=== PATIENT | female | born 1945 | race Caucasian/White ===

== ENCOUNTER → 2016-09-03 | Outpatient (CLI) | payer MEDICARE, MEDICAID | LOC: M HL 09:40 | PROVIDERS: ATTEND Physician Assistant Medical | DX: I10 Essential (primary) hypertension (principal) ==

== ENCOUNTER → 2016-09-06 | Outpatient (CLI) | payer MEDICARE, MEDICAID | LOC: M LAB 09:45 | PROVIDERS: ATTEND Physician Assistant Medical | DX: I10 Essential (primary) hypertension (principal); R73.01 Impaired fasting glucose ==

== ENCOUNTER 2017-10-20 19:13 | Emergency (ER) | payer OTHER, MEDICARE, MEDICAID ==
[2017-10-20] MEDS: KETOROLAC 60 MG/2 ML VIAL (J1885) IM (21:42)
== END 2017-10-20 22:20 | disposition home or self-care (01) ==
LOC: M ED 19:13
DX: S16.1XXA Strain of muscle, fascia and tendon at neck level, initial encounter (principal); V49.49XA Driver injured in collision with other motor vehicles in traffic accident, initial encounter; Y92.410 Unspecified street and highway as the place of occurrence of the external cause; I10 Essential (primary) hypertension; Z79.899 Other long term (current) drug therapy; Z88.0 Allergy status to penicillin; Z88.5 Allergy status to narcotic agent
CPT/HCPCS: J1885

== ENCOUNTER → 2017-11-11 | Outpatient (CLI) | payer MEDICARE, MEDICAID | LOC: M RAD 14:48 | DX: Z12.31 Encounter for screening mammogram for malignant neoplasm of breast (principal); Z78.0 Asymptomatic menopausal state; Z92.0 Personal history of contraception | CPT/HCPCS: 77067 ==

== ENCOUNTER 2017-11-19 07:53 | Outpatient (RCR) | payer OTHER, MEDICAID, MEDICARE | END 2017-12-14 | LOC: M PT 07:53 | DX: Z51.89 Encounter for other specified aftercare (principal); S13.4XXD Sprain of ligaments of cervical spine, subsequent encounter | CPT/HCPCS: 97010 ==

== ENCOUNTER → 2017-12-29 | Outpatient (REF) | payer OTHER ==
[2017-12-29 11:43] LABS: BASO # 0.1 10^3/uL (0.0-0.2); BASO % 0.8 % (0.0-1.0); EOS # 0.2 10^3/uL (0.0-0.50); EOS % 2.4 % (0.0-3.0); HEMATOCRIT 39.5 % (36.0-47.0); HEMOGLOBIN 13.1 g/dl (12.0-15.5); IMMATURE GRANULOCYTE % 0.2 % (0-3.0); LYMPH # 1.5 10^3/uL (1.5-4.5); LYMPH % 22.3 % (24.0-44.0); MEAN CORPUSCULAR HEMOGLOBIN 29.8 pg (27.0-33.0); MEAN CORPUSCULAR HGB CONC 33.2 g/dl (32.0-36.5); MONO # 0.5 10^3/uL (0.0-0.8); MONO % 8.1 % (0.0-5.0); NEUTROPHILS # 4.4 10^3/uL (1.8-7.7); NEUTROPHILS % 66.2 % (36.0-66.0); PLATELET COUNT, AUTOMATED 213 10^3/uL (150-450); RED BLOOD COUNT 4.39 10^6/uL (4.00-5.40); WHITE BLOOD COUNT 6.6 10^3/uL (4.0-10.0)
[2017-12-29 12:26] LABS: ALBUMIN 3.9 GM/DL (3.2-5.2); ALBUMIN/GLOBULIN RATIO 1.15 (1.00-1.93); ALKALINE PHOSPHATASE 66 U/L (45-117); ALT/SGPT 28 U/L (12-78); ANION GAP 5 MEQ/L (8-16); AST/SGOT 23 U/L (7-37); BILIRUBIN,TOTAL 0.5 MG/DL (0.2-1.0); BLOOD UREA NITROGEN 22 MG/DL (7-18); CALCIUM LEVEL 8.8 MG/DL (8.8-10.2); CARBON DIOXIDE LEVEL 34 MEQ/L (21-32); CHLORIDE LEVEL 104 MEQ/L (98-107); CHOLESTEROL LEVEL 169 MG/DL (<200); CHOLESTEROL RISK RATIO 2.682 (<5); CREATININE FOR GFR 0.81 MG/DL (0.55-1.30); GLOMERULAR FILTRATION RATE > 60.0 (>39); GLUCOSE, FASTING 99 MG/DL (70-100); HDL CHOLESTEROL 63 MG/DL (>40); LDL CHOLESTEROL 88.8 MG/DL (<100); NON-HDL-C 106 MG/DL; POTASSIUM SERUM 3.6 MEQ/L (3.5-5.1); SODIUM LEVEL 143 MEQ/L (136-145); TOTAL PROTEIN 7.3 GM/DL (6.4-8.2); TRIGLYCERIDES LEVEL 86 MG/DL (<150)
[2017-12-29 12:31] LABS: TOTAL 25(OH) VITAMIN D 37.5 NG/ML (30.0-100.0)
== END ==
LOC: M LABDRAW1 10:22
DX: I50.32 Chronic diastolic (congestive) heart failure (principal); E55.9 Vitamin D deficiency, unspecified; I11.0 Hypertensive heart disease with heart failure
CPT/HCPCS: 84443

== ENCOUNTER 2018-01-20 12:30 | Outpatient (RCR) | payer OTHER | END 2018-02-13 | LOC: M PT 12:30 | DX: Z51.89 Encounter for other specified aftercare (principal); M54.2 Cervicalgia; S13.4XXD Sprain of ligaments of cervical spine, subsequent encounter | CPT/HCPCS: 97010 ==

== ENCOUNTER 2018-04-07 05:49 | Day surgery (SDC) | payer MEDICARE, MEDICAID ==
[2018-04-07] MEDS ORDERED: TOBRADEX OPHTH OINT 3.5 GM As Ordered (06:35)
[2018-04-07] MEDS: LIDOCAINE 3.5 % 1ML OPHTH TOPICAL GEL OU (06:40)
[2018-04-07] MEDS ORDERED: fentaNYL 100 MCG/2 ML INJECTION (J3010) As Ordered (06:57)
[2018-04-07] MEDS ORDERED: MIDAZOLAM INJ 2 MG/2 ML VIAL (J2250) As Ordered (06:57)
[2018-04-07] MEDS: POVIDONE-IODINE 5% OPHTH PREP SOL 30ML As Ordered (07:30)
[2018-04-07] MEDS: LIDOCAINE 2% W/EPIN INJ 20ML **PRES FREE As Ordered (07:39)
== END 2018-04-07 08:20 | disposition home or self-care (01) ==
LOC: M SDC 05:49
DX: H02.015 Cicatricial entropion of left lower eyelid (principal); I10 Essential (primary) hypertension; G47.30 Sleep apnea, unspecified; F41.9 Anxiety disorder, unspecified; Z79.899 Other long term (current) drug therapy; Z88.0 Allergy status to penicillin
CPT/HCPCS: 67924

== ENCOUNTER → 2018-06-29 | Outpatient (CLI) | payer MEDICARE, MEDICAID ==
[2018-06-29 13:40] LABS: BASO # 0.1 10^3/uL (0.0-0.2); BASO % 0.7 % (0.0-1.0); EOS # 0.2 10^3/uL (0.0-0.50); EOS % 2.1 % (0.0-3.0); HEMATOCRIT 42.5 % (36.0-47.0); HEMOGLOBIN 13.9 g/dl (12.0-15.5); IMMATURE GRANULOCYTE % 0.3 % (0-3.0); LYMPH # 1.9 10^3/uL (1.5-4.5); LYMPH % 26.3 % (24.0-44.0); MEAN CORPUSCULAR HEMOGLOBIN 29.8 pg (27.0-33.0); MEAN CORPUSCULAR HGB CONC 32.7 g/dl (32.0-36.5); MONO # 0.6 10^3/uL (0.0-0.8); MONO % 8.8 % (0.0-5.0); NEUTROPHILS # 4.5 10^3/uL (1.8-7.7); NEUTROPHILS % 61.8 % (36.0-66.0); PLATELET COUNT, AUTOMATED 222 10^3/uL (150-450); RED BLOOD COUNT 4.67 10^6/uL (4.00-5.40); RED CELL DISTRIBUTION WIDTH 12.9 % (11.5-14.5); WHITE BLOOD COUNT 7.3 10^3/uL (4.0-10.0)
[2018-06-29 14:08] LABS: ALBUMIN 4.1 GM/DL (3.2-5.2); ALBUMIN/GLOBULIN RATIO 1.37 (1.00-1.93); ALKALINE PHOSPHATASE 74 U/L (45-117); ALT/SGPT 28 U/L (12-78); ANION GAP 7 MEQ/L (8-16); AST/SGOT 25 U/L (7-37); BILIRUBIN,TOTAL 0.5 MG/DL (0.2-1.0); BLOOD UREA NITROGEN 20 MG/DL (7-18); CALCIUM LEVEL 9.4 MG/DL (8.8-10.2); CARBON DIOXIDE LEVEL 35 MEQ/L (21-32); CHLORIDE LEVEL 99 MEQ/L (98-107); CHOLESTEROL LEVEL 175 MG/DL (<200); CHOLESTEROL RISK RATIO 2.692 (<5); CREATININE FOR GFR 0.83 MG/DL (0.55-1.30); GLOMERULAR FILTRATION RATE > 60.0 (>39); GLUCOSE, FASTING 95 MG/DL (70-100); HDL CHOLESTEROL 65 MG/DL (>40); LDL CHOLESTEROL 95 MG/DL (<100); NON-HDL-C 110 MG/DL; POTASSIUM SERUM 3.5 MEQ/L (3.5-5.1); SODIUM LEVEL 141 MEQ/L (136-145); TOTAL 25(OH) VITAMIN D 47.9 NG/ML (30.0-100.0); TOTAL PROTEIN 7.1 GM/DL (6.4-8.2); TRIGLYCERIDES LEVEL 76 MG/DL (<150)
== END ==
LOC: M LAB 12:44
DX: Z00.00 Encounter for general adult medical examination without abnormal findings (principal); Z79.899 Other long term (current) drug therapy
CPT/HCPCS: 84443

== ENCOUNTER → 2018-11-25 | Outpatient (CLI) | payer MEDICARE, MEDICAID ==
[~2018-11-25] MED LIST: ALEN35TA37; CILO0.3S OU; DOXA1TAB41 PO; HYDR-3363 PO; HYDR12.55 PO; IBUP-1022 PO; LISI40TA PO; MULT1TAB10 PO; PROAAER10 INH; ROBA500T PO; SERT-155 PO; TRAM50TA2 PO; TRAZ-160 PO; VENTAER INH; VITA100067 PO
--- NOTE | 2018-11-25 17:36 | REPMRS ---
Patient History The patient states she has not had a clinical breast exam in over a year. No known family history of cancer. Took hormonal contraceptives for 2 months. Digital Mammo Screening Bilat: November 25, 2018 - Exam #: [id number] Bilateral CC and MLO view(s) were taken. Technologist: Anjana Pizano, Technologist Prior study comparison: November 11, 2017, bilateral digital mammo screening bilat performed at [facility]. June 26, 2016, bilateral digital mammo screening bilat performed at [facility]. April 03, 2015, bilateral digital mammo screening bilat performed at [facility]. FINDINGS: There are scattered fibroglandular densities. There has been no change in the appearance of the mammogram from the prior studies. There is a mild amount of scattered fibroglandular density which is fairly symmetric. There is no interval development of dominant mass, architectural distortion, or clustered microcalcification suggestive of malignancy. 3-D tomosynthesis shows no additional findings. Assessment: BI-RADS/ACR category 1 mammogram. Negative Mammogram. Recommendation Routine screening mammogram of both breasts in 1 year (for women over age 40). This patient's Lifetime Breast Cancer RIsk is estimated at 6.4 %. This mammogram was interpreted with the aid of an FDA-approved computer-aided dectection system. Electronically Signed By: Raheem Oneill MD 11/25/18 [id number]
== END ==
LOC: M RAD 13:00
PROVIDERS: ATTEND Physician Assistant Medical
DX: Z12.31 Encounter for screening mammogram for malignant neoplasm of breast (principal)

== ENCOUNTER → 2019-02-07 | Outpatient (REF) | payer MEDICARE, MEDICAID ==
[~2019-02-07] MED LIST changes: -TRAZ-160 PO; +TRAZ-252 PO
[2019-02-07 19:32] LABS: BASO # 0.1 10^3/uL (0.0-0.2); BASO % 0.7 % (0.0-1.0); EOS # 0.1 10^3/uL (0.0-0.50); EOS % 1.7 % (0.0-3.0); HEMATOCRIT 42.3 % (36.0-47.0); HEMOGLOBIN 13.9 g/dl (12.0-15.5); LYMPH # 1.7 10^3/uL (1.5-4.5); LYMPH % 23.4 % (24.0-44.0); MEAN CORPUSCULAR HEMOGLOBIN 29.6 pg (27.0-33.0); MEAN CORPUSCULAR HGB CONC 32.9 g/dl (32.0-36.5); MEAN CORPUSCULAR VOLUME 90.2 fl (80.0-96.0); MONO # 0.7 10^3/uL (0.0-0.8); MONO % 9.1 % (0.0-5.0); NEUTROPHILS # 4.7 10^3/uL (1.8-7.7); NEUTROPHILS % 64.8 % (36.0-66.0); PLATELET COUNT, AUTOMATED 219 10^3/uL (150-450); RED BLOOD COUNT 4.69 10^6/uL (4.00-5.40); WHITE BLOOD COUNT 7.3 10^3/uL (4.0-10.0)
[2019-02-07 19:52] LABS: ALBUMIN 3.9 GM/DL (3.2-5.2); BILIRUBIN,TOTAL 0.6 MG/DL (0.2-1.0); CHOLESTEROL RISK RATIO 2.903 (<5); CREATININE FOR GFR 1.02 MG/DL (0.55-1.30); GLOMERULAR FILTRATION RATE 56.6 (>39); POTASSIUM SERUM 3.5 MEQ/L (3.5-5.1); THYROID STIMULATING HORMONE 1.57 uIU/ML (0.358-3.740); TOTAL 25(OH) VITAMIN D 41.2 NG/ML (30.0-100.0); TOTAL PROTEIN 7.3 GM/DL (6.4-8.2)
== END ==
LOC: M SFHCADAM 11:28
PROVIDERS: ATTEND Physician Assistant Medical
DX: Z00.00 Encounter for general adult medical examination without abnormal findings (principal); I11.0 Hypertensive heart disease with heart failure; I50.32 Chronic diastolic (congestive) heart failure; E55.9 Vitamin D deficiency, unspecified; M81.0 Age-related osteoporosis without current pathological fracture; Z23 Encounter for immunization
CPT/HCPCS: 80053; 80061; 82306; 84443; 85025; 90732; 93005; G0009; G0463

== ENCOUNTER → 2019-02-10 | Outpatient (CLI) | payer MEDICARE, MEDICAID ==
--- NOTE | 2019-02-12 15:02 | ECHO ---
DATE OF PROCEDURE: 02/10/2019 AGE: 73 GENDER: Female HEIGHT: 62 inches WEIGHT: 155 pounds BODY SURFACE AREA: 1.72 m2 PATIENT LOCATION: Outpatient. REFERRING PHYSICIAN: KARRIE Hernandez INDICATION: Heart failure (diastolic/chronic). 2-D MEASUREMENTS: RV: 3.2 cm LV: 3.8 cm Septum: 1.2 cm Posterior wall: 1.2 cm Aortic root: 2.8 cm LA: 3.9 cm LVEF: 75% DOPPLER MEASUREMENTS: AV: 2.07 m/s LVOT: 1.53 m/s LVOT diameter: 1.9 cm Mean AV systolic gradient: 8 mmHg PV-E: 96, A: 121, EA ratio: 0.8 Early mitral deceleration time: 264 ms E prime: 5.3, A prime: 9.7, E/E prime ratio: 18 PCWP: 21 mmHg PV: 1.0 m/s Pulmonary artery acceleration time: 106 ms RVSP: 35 mmHg IVC: 1.6 cm COMMENTS Normal sinus rhythm without intraventricular conduction disturbance. M-mode and two-dimensional echocardiography was performed with pulsed, continuous wave, color flow and tissue Doppler studies. Borderline concentric left ventricle hypertrophy with hyperkinetic wall motion. Borderline left atrial enlargement with Doppler evidence of an impairment of LV diastolic function and elevated mean left atrial pressure. Normal right heart chamber sizes and motion with Doppler evidence of mild pulmonary hypertension. Normal IVC size and collapse against an elevated central venous pressure at this time. Mild aortic valvular sclerosis without functional abnormality. Mild mitral annular thickening without inflow tract obstruction and only mild insufficiency. Normal appearing tricuspid valve with mild insufficiency. No apparent intracardiac mass or pericardial effusion.
== END ==
LOC: M CARPUL 09:49
PROVIDERS: ATTEND Physician Assistant Medical
DX: I50.32 Chronic diastolic (congestive) heart failure (principal)

== ENCOUNTER 2019-02-14 20:21 | Emergency (ER) | payer MEDICARE, MEDICAID ==
[~2019-02-14] VITALS: Ht 160 cm; Wt 68.0 kg
[2019-02-14] MEDS ORDERED: LIDOCAINE 2% MDV 20 ML VIAL SC ONE (23:15)
[2019-02-14 23:36] VITALS: BP 165/76
--- NOTE | 2019-02-15 07:42 | REP ---
Clinical: Trauma. Technique: AP, lateral, bilateral oblique views of the left hand. Findings: Comminuted mildly angulated fracture involving the fifth metacarpal bone is appreciated with overlying soft tissue swelling. Impression: Comminuted fracture of the fifth metacarpal bone. Electronically Signed by Omer Stanton MD 02/15/2019 07:33 A
--- NOTE | 2019-02-15 07:43 | REP ---
Clinical: Status post splint. Technique: AP and lateral views of the left hand. Findings: The patient is status post stabilization with underlying comminuted fifth metacarpal bone fracture again noted. Electronically Signed by Omer Stanton MD 02/15/2019 07:34 A
== END 2019-02-14 23:48 | disposition home or self-care (01) ==
LOC: M ED 20:21
DX: S62.327A Displaced fracture of shaft of fifth metacarpal bone, left hand, initial encounter for closed fracture (principal); W01.0XXA Fall on same level from slipping, tripping and stumbling without subsequent striking against object, initial encounter; Y92.219 Unspecified school as the place of occurrence of the external cause; Y93.01 Activity, walking, marching and hiking; I10 Essential (primary) hypertension; F41.9 Anxiety disorder, unspecified; Z79.51 Long term (current) use of inhaled steroids; Z79.891 Long term (current) use of opiate analgesic; Z79.899 Other long term (current) drug therapy; Z88.0 Allergy status to penicillin; Z88.5 Allergy status to narcotic agent

== ENCOUNTER 2019-04-14 14:07 | Outpatient (RCR) | payer MEDICARE, MEDICAID | END 2019-04-16 | LOC: M PT 14:07 | PROVIDERS: ATTEND Physician Assistant | DX: S62.327D Displaced fracture of shaft of fifth metacarpal bone, left hand, subsequent encounter for fracture with routine healing (principal); M54.2 Cervicalgia ==

== ENCOUNTER → 2019-04-26 | Outpatient (CLI) | payer MEDICARE, MEDICAID ==
--- NOTE | 2019-04-27 08:58 | REP ---
MRI of the cervical spine without contrast Indication: Clune no joints and ligaments of the neck. Comparison: CT cervical spine of 10/20/2017. Technique: MRI of the cervical spine was performed utilizing sagittal T1 FLAIR, STIR, and T2 weighted imaging as well as axial T1 and T2-weighted imaging. No intravenous contrast was administered. Findings: There is straightening of cervical lordosis. There is an 2 mm anterolisthesis of C2 on C3, similar to prior. Vertebral body heights are maintained. There are multilevel degenerative changes at C3-C7 with loss of disc height and disc osteophyte complex formation and endplate marrow signal changes. There is no gross signal abnormality within the spinal cord. The paraspinal soft tissues are within normal limits. Level specific observations: C2-C3: Anterolisthesis. Bilateral uncovertebral joint hypertrophy. C3-C4: Disc osteophyte complex. Mild spinal canal stenosis. C4-C5: Disc osteophyte complex, eccentric to the right. Mild right-sided narrowing of the spinal canal. Bilateral neural foraminal narrowing, greater on the right. C5-C6: Disc osteophyte complex. Mild spinal canal stenosis. Bilateral neural foraminal narrowing. C6-C7: Disc osteophyte complex, eccentric to the right. Mild spinal canal stenosis. Moderate neural foraminal narrowing, worse on the right. C7-T1: Unremarkable. Impression: Straightening of cervical lordosis and grade 1 anterolisthesis of C2 on C3, similar to prior. Multilevel cervical spondylosis with mild spinal canal stenosis at C3-C7. Bilateral neural foraminal narrowing at C4-C7, most notably at C6-C7. Electronically Signed by Ester Triana MD 04/27/2019 08:50 A
== END ==
LOC: M RAD 17:08
PROVIDERS: ATTEND Physician Assistant
DX: S13.8XXD Sprain of joints and ligaments of other parts of neck, subsequent encounter (principal)

== ENCOUNTER 2019-05-12 13:40 | Outpatient (RCR) | payer MEDICARE, MEDICAID | END 2019-05-16 | LOC: M PT 13:40 | PROVIDERS: ATTEND Physician Assistant | DX: S62.327D Displaced fracture of shaft of fifth metacarpal bone, left hand, subsequent encounter for fracture with routine healing (principal) ==

== ENCOUNTER 2019-06-01 14:50 | Emergency (ER) | payer MEDICARE, MEDICAID ==
[~2019-06-01] VITALS: Ht 157.5 cm; Wt 73.4 kg
[~2019-06-01 14:50] MED LIST changes: -ALEN35TA37; +ALEN35TA6; -SERT-155 PO; +SERT50TA29 PO
[2019-06-01] MEDS ORDERED: OLOP0.2S (15:38)
--- NOTE | 2019-06-01 16:25 | REP ---
Duplex extremity venous ultrasound: Left lower extremity. History: Rule out DVT. Findings: The deep veins are anechoic and fully compressible from the groin to the popliteal fossa in the left lower extremity. Color flow imaging is homogeneous. Spectral Doppler interrogation demonstrates intact respiratory variation in flow and normal manual augmentation of flow. There is no evidence of deep vein thrombosis. Impression: Negative left lower extremity duplex venous ultrasound. No evidence of deep vein thrombosis. Electronically Signed by Sanjay Oneill MD 06/01/2019 04:17 P
--- NOTE | 2019-06-01 16:34 | REP ---
Left knee series: Five views. History: Knee pain. Findings: Five views of the left knee demonstrate normal bones, joints, and soft tissues. Impression: Negative radiographs of the left knee. Electronically Signed by Sanjay Oneill MD 06/01/2019 04:25 P
--- NOTE | 2019-06-01 16:35 | REP ---
Left calf: Four views. History: Tenderness palpation proximal tib-fib. Findings: Four views of the left calf demonstrate normal bones, joints and soft tissues. No fracture or subluxation is seen. There is plantar and Achilles calcaneal spurring. Impression: Heel spurring. Otherwise negative left calf radiographs. Electronically Signed by Sanjay Oneill MD 06/01/2019 04:26 P
[2019-06-01 17:04] VITALS: BP 145/70
--- NOTE | 2019-06-01 17:29 | REP ---
Five views lumbar spine: 06/01/2019. Indication: Low back pain. Comparison: None. Findings: There is no evidence of acute fracture, subluxation or dislocation. Disc space narrowing, endplate degenerative sequelae and disc and spur complexes are present throughout. Impression: No acute osseous injury of the lumbar spine. Significant multilevel degenerative sequelae. Electronically Signed by Jacob Dhillon DO 06/01/2019 05:20 P
--- NOTE | 2019-06-01 17:34 | REP ---
Two-view left hip: 06/01/2019. Indication: Left hip pain. Comparison: None. Findings: There is no evidence of fracture, subluxation or dislocation. There is mild narrowing of the hip joint. Minimal degenerative sequelae of the superior stem are noted. Impression: No acute fracture. Electronically Signed by Jacob Dhillon DO 06/01/2019 05:25 P
== END 2019-06-01 18:02 | disposition home or self-care (01) ==
LOC: M ED 14:50
DX: I73.89 Other specified peripheral vascular diseases (principal); M51.9 Unspecified thoracic, thoracolumbar and lumbosacral intervertebral disc disorder; J44.9 Chronic obstructive pulmonary disease, unspecified; I10 Essential (primary) hypertension; F33.9 Major depressive disorder, recurrent, unspecified; F41.9 Anxiety disorder, unspecified; G47.00 Insomnia, unspecified; M81.0 Age-related osteoporosis without current pathological fracture; F70 Mild intellectual disabilities

== ENCOUNTER → 2019-06-16 | Outpatient (RCR) | payer MEDICARE, MEDICAID ==
[~2019-06-16] MED LIST changes: +OLOP0.2S
== END ==
LOC: M PT 05-17 15:38
PROVIDERS: ATTEND Orthopaedic Surgery
DX: Z47.89 Encounter for other orthopedic aftercare (principal); M48.02 Spinal stenosis, cervical region; M50.30 Other cervical disc degeneration, unspecified cervical region; M72.2 Plantar fascial fibromatosis

== ENCOUNTER 2019-07-13 13:57 | Outpatient (RCR) | payer MEDICARE, MEDICAID | END 2019-07-16 | LOC: M PT 13:57 | PROVIDERS: ATTEND Orthopaedic Surgery | DX: Z47.89 Encounter for other orthopedic aftercare (principal); M48.02 Spinal stenosis, cervical region; M50.30 Other cervical disc degeneration, unspecified cervical region; M72.2 Plantar fascial fibromatosis ==

== ENCOUNTER → 2019-07-20 | Outpatient (CLI) | payer MEDICARE, MEDICAID ==
--- NOTE | 2019-07-20 16:02 | REP ---
BILATERAL LOWER EXTREMITY DUPLEX DOPPLER ARTERIAL ULTRASOUND: Real-time ultrasound evaluation and duplex Doppler interrogation of the bilateral lower extremity arterial systems is performed. RAYMUNDO right is 1.0 and left 0.9. There is mild intimal thickening and plaquing diffusely bilaterally without evidence of hemodynamically significant stenosis. Normal flow velocities are seen bilaterally with triphasic and biphasic waveforms diffusely, monophasic wave forms in the bilateral profunda arteries. The wave forms in the distal left superficial femoral artery, popliteal artery, and calf arteries are borderline monophasic. PEAK SYSTOLIC VELOCITY RIGHT LEFT Common femoral artery 140.0 cm/s 124.0 cm/s Profunda 79.0 88.0 Proximal SFA 138.0 157.0 Popliteal 77.0 77.0 Proximal anterior tibial artery 76.0 47.0 Tibioperoneal trunk 88.0 77.0 Proximal posterior tibial artery 65.0 114.0 Distal posterior tibial artery 99.0 87.0 Distal anterior tibial artery 104.0 119.0 IMPRESSION: Mild scattered plaquing and narrowing without evidence of hemodynamically significant stenosis of either lower extremity arterial system. Electronically Signed by Elias Urbina MD 07/20/2019 04:13 P
== END ==
LOC: M RAD 13:32
PROVIDERS: ATTEND Physician Assistant
DX: M79.606 Pain in leg, unspecified (principal)

== ENCOUNTER 2019-08-11 12:32 | Outpatient (RCR) | payer MEDICARE, MEDICAID | END 2019-08-16 | LOC: M PT 12:32 | PROVIDERS: ATTEND Orthopaedic Surgery | DX: M54.2 Cervicalgia (principal); M72.2 Plantar fascial fibromatosis ==

== ENCOUNTER → 2019-08-18 | Outpatient (REF) | payer MEDICARE, MEDICAID ==
[~2019-08-18] MED LIST changes: +ASPI-1 PO; +HYDR-3715 PO; +INDO50CA91 PO
[2019-08-18 12:34] LABS: BLOOD UREA NITROGEN 21 MG/DL (7-18); CALCIUM LEVEL 9.6 MG/DL (8.8-10.2); CARBON DIOXIDE LEVEL 35 MEQ/L (21-32); CHLORIDE LEVEL 101 MEQ/L (98-107); CREATININE FOR GFR 0.91 MG/DL (0.55-1.30); GLOMERULAR FILTRATION RATE > 60.0 (>39); GLUCOSE, FASTING 109 MG/DL (70-100); POTASSIUM SERUM 3.6 MEQ/L (3.5-5.1); SODIUM LEVEL 142 MEQ/L (136-145)
== END ==
LOC: M SFHCADAM 09:22
PROVIDERS: ATTEND Physician Assistant Medical
DX: Z01.818 Encounter for other preprocedural examination (principal); S83.242A Other tear of medial meniscus, current injury, left knee, initial encounter; X58.XXXA Exposure to other specified factors, initial encounter; Y92.9 Unspecified place or not applicable
CPT/HCPCS: 80048; 93005; G0463

== ENCOUNTER 2019-09-05 10:37 | Emergency (ER) | payer MEDICARE, MEDICAID ==
[~2019-09-05] VITALS: Ht 157.5 cm; Wt 74.3 kg
[~2019-09-05 10:37] MED LIST changes: -ASPI-1 PO; -HYDR-3715 PO; -INDO50CA91 PO
[2019-09-05] MEDS ORDERED: INDO50CA91 PO (11:23)
[2019-09-05] MEDS ORDERED: HYDR-3715 PO (11:23)
[2019-09-05] MEDS ORDERED: IBUP-1022 PO (11:23)
[2019-09-05] MEDS ORDERED: ASPI-1 PO (11:23)
[2019-09-05 12:12] LABS: HEMATOCRIT 39.6 % (36.0-47.0); MEAN CORPUSCULAR HEMOGLOBIN 29.1 pg (27.0-33.0); MEAN CORPUSCULAR HGB CONC 32.8 g/dl (32.0-36.5); MEAN CORPUSCULAR VOLUME 88.6 fl (80.0-96.0); PLATELET COUNT, AUTOMATED 224 10^3/uL (150-450); RED BLOOD COUNT 4.47 10^6/uL (4.00-5.40); WHITE BLOOD COUNT 8.4 10^3/uL (4.0-10.0)
[2019-09-05 12:37] LABS: BLOOD UREA NITROGEN 20 MG/DL (7-18); CALCIUM LEVEL 9.3 MG/DL (8.8-10.2); CARBON DIOXIDE LEVEL 34 MEQ/L (21-32); CHLORIDE LEVEL 102 MEQ/L (98-107); CREATININE FOR GFR 0.89 MG/DL (0.55-1.30); GLOMERULAR FILTRATION RATE > 60.0 (>39); GLUCOSE, FASTING 112 MG/DL (70-100); POTASSIUM SERUM 3.6 MEQ/L (3.5-5.1); SODIUM LEVEL 142 MEQ/L (136-145)
[2019-09-05 13:24] VITALS: BP 197/72
--- NOTE | 2019-09-06 20:27 | ECGEPIP ---
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
== END 2019-09-05 13:32 | disposition home or self-care (01) ==
LOC: M ED 10:37
DX: I16.0 Hypertensive urgency (principal); Z88.0 Allergy status to penicillin; Z88.5 Allergy status to narcotic agent; Z79.899 Other long term (current) drug therapy

== ENCOUNTER 2019-09-13 12:08 | Outpatient (RCR) | payer MEDICARE, MEDICAID ==
[~2019-09-13 12:08] MED LIST changes: +ASPI-1 PO; +HYDR-3715 PO; +INDO50CA91 PO
== END 2019-09-16 ==
LOC: M PT 12:08
PROVIDERS: ATTEND Orthopaedic Surgery
DX: S83.241D Other tear of medial meniscus, current injury, right knee, subsequent encounter (principal); W18.30XD Fall on same level, unspecified, subsequent encounter; Y92.9 Unspecified place or not applicable

== ENCOUNTER 2019-09-24 11:30 | Emergency (ER) | payer MEDICARE, MEDICAID ==
[~2019-09-24] VITALS: Ht 157.5 cm; Wt 71.1 kg
--- NOTE | 2019-09-24 12:17 | REP ---
Clinical: Possible acute cerebrovascular accident . Findings: Age-related atrophy and microvascular ischemic changes are appreciated. The ventricles and sulci are symmetric. Urbina-white differentiation is maintained. There is no evidence for acute intracranial hemorrhage, mass/mass effect, pathology or infarction. No extra-axial fluid collection. Calvarium is intact. Paranasal sinuses and mastoid air cells are clear. Impression: Age related atrophy and microvascular ischemic changes. No acute intracranial hemorrhage, infarction, or mass/mass effect. Electronically Signed by Omer Stanton MD 09/24/2019 12:08 P
[2019-09-24 12:36] LABS: BASO # 0.1 10^3/uL (0.0-0.2); BASO % 0.7 % (0.0-1.0); EOS # 0.1 10^3/uL (0.0-0.5); EOS % 1.2 % (0.0-3.0); HEMATOCRIT 40.4 % (36.0-47.0); LYMPH # 1.5 10^3/uL (1.5-5.0); LYMPH % 20.5 % (24.0-44.0); MEAN CORPUSCULAR HEMOGLOBIN 28.7 pg (27.0-33.0); MEAN CORPUSCULAR HGB CONC 32.2 g/dl (32.0-36.5); MEAN CORPUSCULAR VOLUME 89.2 fl (80.0-96.0); MONO # 0.6 10^3/uL (0.0-0.8); MONO % 8.7 % (0.0-5.0); NEUTROPHILS # 5.1 10^3/uL (1.5-8.5); NEUTROPHILS % 68.6 % (36.0-66.0); PLATELET COUNT, AUTOMATED 221 10^3/uL (150-450); RED BLOOD COUNT 4.53 10^6/uL (4.00-5.40); WHITE BLOOD COUNT 7.4 10^3/uL (4.0-10.0)
--- NOTE | 2019-09-24 12:36 | REP ---
Clinical: Acute cerebrovascular accident . Comparison: 01/02/2015 . Findings: The mediastinum and cardiac silhouette are stable and within normal limits for portable technique. The lung millard are clear without acute consolidation, effusion, or pneumothorax. Skeletal structures are intact. Impression: No acute cardiopulmonary process appreciated. Electronically Signed by Omer Stanton MD 09/24/2019 12:28 P
[2019-09-24 12:46] LABS: INR 1.04; PROTHROMBIN TIME 13.3 SECONDS (11.8-14.0)
[2019-09-24 12:47] LABS: PARTIAL THROMBOPLASTIN TIME 28.9 SECONDS (25.0-38.4)
[2019-09-24 12:51] LABS: ALBUMIN 3.8 GM/DL (3.2-5.2); ALT/SGPT 19 U/L (12-78); BILIRUBIN,DIRECT 0.2 MG/DL (0.0-0.2); BILIRUBIN,TOTAL 0.5 MG/DL (0.2-1.0); CK-MB VALUE MASS < 1.0 NG/ML (<3.6); CPK CREATINE PHOSPHOKINASE 83 U/L (26-192); LIPASE 43 U/L (73-393); TOTAL PROTEIN 7.4 GM/DL (6.4-8.2); TROPONIN I < 0.02 NG/ML (< 0.10)
[2019-09-24] MEDS ORDERED: KCL 10MEQ/100ML SWI (KRUN) 10 MEQ in IV 1 EA IV ONE (13:15)
[2019-09-24] MEDS ORDERED: POTASSIUM CHLORIDE 10 MEQ SR TABLET PO ONE (13:15)
[2019-09-24] MEDS ORDERED: lisinopriL 40 MG TAB PO ONE (14:30)
--- NOTE | 2019-09-24 14:53 | REPVR ---
PROCEDURE INFORMATION: Exam: MR Head Without Contrast Exam date and time: 09/24/2019 1:53 PM Age: 73 years old Clinical indication: Dizziness; Additional info: RO CVA, dizzy TECHNIQUE: Imaging protocol: MR of the head without contrast. COMPARISON: CT Head without contrast 09/24/2019 11:51 AM FINDINGS: Brain: There is mild patchy increased T2 signal intensity within the bilateral cerebral periventricular white matter, consistent with chronic microvascular ischemic changes. There are few small focal areas of chronic ischemia in bilateral frontal, parietal and periatrial white matter. There is no abnormal diffusion weighted signal intensity to suggest an acute ischemic event. There is mild diffuse cerebral atrophy present, consistent with this patient's age. Ventricles: The ventricular system demonstrates mild diffuse compensatory enlargement. Bones/joints: Unremarkable. Soft tissues: Unremarkable. Sinuses: Mild mucosal thickening is seen in the paranasal sinuses. Mastoid air cells: Normal as visualized. No mastoid effusion. Orbits: Unremarkable. IMPRESSION: 1. No acute infarction, masses or hemorrhage is seen. No acute intracranial abnormality is identified. 2. Diffuse age-related cerebral atrophy and mild chronic microvascular white matter ischemic changes, without evidence of an acute intracranial abnormality. Electronically signed by: Waylon Friedman On 09/24/2019 14:53:20 PM
[2019-09-24] MEDS ORDERED: MECLIZINE 25 MG TABLET PO ONE (15:15)
[2019-09-24 16:30] VITALS: BP 153/72
[2019-09-24] MEDS ORDERED: POTA1TAB14 PO (16:31)
[2019-09-24] MEDS ORDERED: MECL-86 PO (16:32)
--- NOTE | 2019-09-24 17:50 | ECGEPIP ---
[facility] - ED Test Date: 2019-09-24 Pat Name: SUSAN PRASAD Department: Room: - Gender: Female Regulatory Coordinator: TC : 1945 Requested By: Rickey Bender Order Number: [id number] Reading MD: Rickey Bender Measurements Intervals Shannon Rate: 84 P: 8 LA: 116 QRS: -15 QRSD: 106 T: 26 QT: 367 QTc: 434 Interpretive Statements SINUS RHYTHM WITH SHORT LA INTERVAL LEFT VENTRICULAR HYPERTROPHY AND ST-T CHANGE LAD NONSPECIFIC ST T WAVE CHANGES CW 07/06/[address] T WAVE CHANGE Electronically Signed on 09-24-2019 17:50:42 EST by Rickey Bender
== END 2019-09-24 16:51 | disposition home or self-care (01) ==
LOC: M ED 11:30
DX: H81.4 Vertigo of central origin (principal); E87.6 Hypokalemia; I10 Essential (primary) hypertension; Z79.51 Long term (current) use of inhaled steroids; Z79.899 Other long term (current) drug therapy; Z88.0 Allergy status to penicillin; Z88.5 Allergy status to narcotic agent

== ENCOUNTER → 2019-09-29 | Outpatient (CLI) | payer OTHER, MEDICAID ==
[~2019-09-29] MED LIST changes: +MECL-86 PO; +POTA1TAB14 PO
[2019-09-29 15:52] LABS: BLOOD UREA NITROGEN 16 MG/DL (7-18); CARBON DIOXIDE LEVEL 36 MEQ/L (21-32); CHLORIDE LEVEL 100 MEQ/L (98-107); CREATININE FOR GFR 0.93 MG/DL (0.55-1.30); GLOMERULAR FILTRATION RATE > 60.0 (>39); GLUCOSE, FASTING 122 MG/DL (70-100); POTASSIUM SERUM 3.5 MEQ/L (3.5-5.1); SODIUM LEVEL 142 MEQ/L (136-145)
== END ==
LOC: M LAB 14:47
PROVIDERS: ATTEND Physician Assistant Medical
DX: E87.6 Hypokalemia (principal)

== ENCOUNTER 2019-10-12 12:37 | Outpatient (RCR) | payer OTHER, MEDICAID | END 2019-10-15 | LOC: M PT 12:37 | PROVIDERS: ATTEND Orthopaedic Surgery | DX: Z47.89 Encounter for other orthopedic aftercare (principal); Z98.890 Other specified postprocedural states; M25.562 Pain in left knee ==

== ENCOUNTER 2019-10-13 11:50 | Outpatient (RCR) | payer OTHER, MEDICAID | END 2019-10-15 | disposition home or self-care (01) | LOC: M PT 11:50 | PROVIDERS: ATTEND Physician Assistant Medical | DX: R42 Dizziness and giddiness (principal) ==

== ENCOUNTER → 2019-11-15 | Outpatient (RCR) | payer OTHER, MEDICAID | LOC: M PT 10-18 14:05 | PROVIDERS: ATTEND Orthopaedic Surgery | DX: M25.562 Pain in left knee (principal) ==

== ENCOUNTER 2019-12-01 14:23 | Outpatient (RCR) | payer OTHER, MEDICAID | END 2019-12-15 | LOC: M PT 14:23 | PROVIDERS: ATTEND Orthopaedic Surgery | DX: M76.72 Peroneal tendinitis, left leg (principal); M76.62 Achilles tendinitis, left leg ==

== ENCOUNTER 2019-12-14 10:38 | Outpatient (RCR) | payer OTHER, MEDICAID | END 2019-12-15 | LOC: M OT 10:38 | PROVIDERS: ATTEND Physician Assistant Surgical | DX: G56.01 Carpal tunnel syndrome, right upper limb (principal); G56.02 Carpal tunnel syndrome, left upper limb ==

== ENCOUNTER 2020-01-12 12:57 | Outpatient (RCR) | payer OTHER, MEDICAID | END 2020-01-15 | LOC: M OT 12:57 | PROVIDERS: ATTEND Physician Assistant Surgical | DX: Z47.89 Encounter for other orthopedic aftercare (principal); G56.03 Carpal tunnel syndrome, bilateral upper limbs ==

== ENCOUNTER → 2020-02-20 | Outpatient (CLI) | payer OTHER, MEDICAID ==
[2020-02-20 10:18] LABS: HEMATOCRIT 40.3 % (36.0-47.0); MEAN CORPUSCULAR HGB CONC 32.3 g/dl (32.0-36.5); PLATELET COUNT, AUTOMATED 220 10^3/uL (150-450); RED BLOOD COUNT 4.48 10^6/uL (4.00-5.40)
[2020-02-20 10:59] LABS: ALBUMIN 3.8 GM/DL (3.2-5.2); BILIRUBIN,TOTAL 0.5 MG/DL (0.2-1.0); CALCIUM LEVEL 8.8 MG/DL (8.8-10.2); CHOLESTEROL RISK RATIO 3.4 (<5); CREATININE FOR GFR 0.98 MG/DL (0.55-1.30); GLOMERULAR FILTRATION RATE 59.1 (>39); POTASSIUM SERUM 3.9 MEQ/L (3.5-5.1); THYROID STIMULATING HORMONE 3.21 uIU/ML (0.358-3.740); TOTAL 25(OH) VITAMIN D 57.4 NG/ML (30.0-100.0); TOTAL PROTEIN 7.2 GM/DL (6.4-8.2)
[2020-02-20 11:02] LABS: HEMOGLOBIN A1c 6.6 %
== END ==
LOC: M LAB 09:37
PROVIDERS: ATTEND Physician Assistant Medical
DX: I10 Essential (primary) hypertension (principal); I50.32 Chronic diastolic (congestive) heart failure; G47.33 Obstructive sleep apnea (adult) (pediatric); J44.9 Chronic obstructive pulmonary disease, unspecified; E55.9 Vitamin D deficiency, unspecified; Z79.899 Other long term (current) drug therapy

== ENCOUNTER 2020-04-10 14:00 | Outpatient (RCR) | payer OTHER, MEDICAID ==
[~2020-04-10 14:00] MED LIST changes: +ALEN35TA54; -ALEN35TA6
== END 2020-04-16 ==
LOC: M PT 14:00
PROVIDERS: ATTEND Psychiatry & Neurology Neurology
DX: M54.5 Low back pain (principal); M79.661 Pain in right lower leg; M79.672 Pain in left foot; M79.671 Pain in right foot

== ENCOUNTER 2020-05-15 13:35 | Outpatient (RCR) | payer OTHER, MEDICAID | END 2020-05-16 | LOC: M PT 13:35 | PROVIDERS: ATTEND Psychiatry & Neurology Neurology | DX: M54.5 Low back pain (principal); M25.571 Pain in right ankle and joints of right foot; M25.572 Pain in left ankle and joints of left foot ==

== ENCOUNTER 2020-06-14 13:00 | Outpatient (RCR) | payer OTHER, MEDICAID | END 2020-06-16 | LOC: M PT 13:00 | PROVIDERS: ATTEND Psychiatry & Neurology Neurology | DX: Z51.89 Encounter for other specified aftercare (principal); M54.5 Low back pain; M79.671 Pain in right foot; M79.672 Pain in left foot ==

== ENCOUNTER → 2020-09-11 | Outpatient (CLI) | payer MEDICARE, MEDICAID ==
[~2020-09-11] MED LIST changes: -LISI40TA PO; +LISI40TA4 PO
--- NOTE | 2020-09-12 09:28 | REP ---
INDICATION: UNSP ATHSCL [place] ART OF EXT CARMITA LEGS COMPARISON: 07/20/2019 TECHNIQUE: Real time urbina scale and color Doppler evaluation of the bilateral lower extremity arterial vasculature using linear high frequency transducer. FINDINGS: Urbina scale and color images demonstrate mild atheromatous plaquing with areas of minimal narrowing but no focal stenosis identified. Doppler interrogation demonstrates primarily triphasic wave patterns bilaterally with the exception of monophasic wave pattern in the right proximal posterior tibial artery. There is no evidence for stenosis or occlusion. Right RAYMUNDO: 1.3 Left RAYMUNDO: 1.2 Peak systolic velocities (cm/sec) Common femoral artery: Right 131.4; Left 142.5 Profunda femoris: Right 81.6; Left 88.0 SFA (proximal): Right 130.9; Left 124.4 SFA (mid): Right 100.5; Left 108.5 SFA (distal): Right 111.3; Left 109.3 Popliteal artery: Right 81.5; Left 82.1 ULYSSES (prox.): Right 106.4; Left 99.4 Tibioperoneal trunk: Right 45.7; Left 52.8 HOT DIP TINNING SUPERVISOR (prox.): Right 66.9; Left 98.6 HOT DIP TINNING SUPERVISOR (distal): Right 76.8; Left 89.3 ULYSSES (distal): Right 86.8; Left 94.1 IMPRESSION: Mild atheromatous plaquing noted bilaterally. No focal areas of stenosis or occlusion appreciated. <Electronically signed by Omer Stanton > 09/12/20 [id number]
== END ==
LOC: M RAD 13:08
PROVIDERS: ATTEND Physician Assistant
DX: I70.203 Unspecified atherosclerosis of native arteries of extremities, bilateral legs (principal); R09.89 Other specified symptoms and signs involving the circulatory and respiratory systems

== ENCOUNTER → 2020-10-15 | Outpatient (REF) | payer MEDICARE, MEDICAID ==
[2020-10-16 13:03] LABS: BASO # 0.1 10^3/uL (0.0-0.2); BASO % 0.9 % (0.0-1.0); EOS # 0.2 10^3/uL (0.0-0.5); EOS % 2.8 % (0.0-3.0); HEMATOCRIT 40.4 % (36.0-47.0); HEMOGLOBIN 12.8 g/dl (12.0-15.5); LYMPH # 1.7 10^3/uL (1.5-5.0); LYMPH % 23.3 % (24.0-44.0); MEAN CORPUSCULAR HEMOGLOBIN 29.4 pg (27.0-33.0); MEAN CORPUSCULAR HGB CONC 31.7 g/dl (32.0-36.5); MEAN CORPUSCULAR VOLUME 92.9 fl (80.0-96.0); MONO # 0.8 10^3/uL (0.0-0.8); MONO % 10.3 % (2.0-8.0); NEUTROPHILS # 4.7 10^3/uL (1.5-8.5); NEUTROPHILS % 62.4 % (36.0-66.0); PLATELET COUNT, AUTOMATED 236 10^3/uL (150-450); RED BLOOD COUNT 4.35 10^6/uL (4.00-5.40); WHITE BLOOD COUNT 7.5 10^3/uL (4.0-10.0)
[2020-10-16 13:34] LABS: ALBUMIN 3.8 GM/DL (3.2-5.2); BILIRUBIN,TOTAL 0.2 MG/DL (0.2-1.0); CHOLESTEROL RISK RATIO 2.915 (<5); CREATININE FOR GFR 0.99 MG/DL (0.55-1.30); GLOMERULAR FILTRATION RATE 58.4 (>39); THYROID STIMULATING HORMONE 2.19 uIU/ML (0.358-3.740); TOTAL PROTEIN 7.1 GM/DL (6.4-8.2)
[2020-10-16 13:37] LABS: TOTAL 25(OH) VITAMIN D 37.3 NG/ML (30.0-100.0)
== END ==
LOC: M SFHCADAM 15:14
PROVIDERS: ATTEND Physician Assistant Medical
DX: I50.32 Chronic diastolic (congestive) heart failure (principal); I11.0 Hypertensive heart disease with heart failure; J44.9 Chronic obstructive pulmonary disease, unspecified; E55.9 Vitamin D deficiency, unspecified
CPT/HCPCS: 80053; 80061; 82306; 84443; 85025; 90682; G0008

== ENCOUNTER → 2020-10-24 | Outpatient (CLI) | payer MEDICARE, MEDICAID ==
--- NOTE | 2020-10-25 10:38 | ECHO ---
DATE OF PROCEDURE: 10/24/2020 Age: 74 Gender: Female Height: 62 inches Weight: 160 pounds Body surface area: 1.73 m2 PATIENT LOCATION: Outpatient. REFERRING PHYSICIAN: KARRIE Hernandez. INDICATION: Heart failure (chronic/diastolic). MEASUREMENTS: 2D Measurements: RV 3.2 cm LV 4.2 cm Septum 1.1 cm Posterior wall 1.1 cm Aortic Root 2.7 cm LA 4.1 cm LVEF 75% Doppler Measurements: AV 1.74 m/s LVOT 1.3 m/s MV-E 131, A 91, E/A ratio 1.4 Early mitral deceleration time 174 msec E prime medial 6.6, A prime medial 8.5, E prime lateral 8.2 Average E/E prime ratio 17.7/PCWP 23.9 mmHg PV 0.75 m/s Pulmonary artery acceleration time 119 msec RVSP 32 mmHg IVC Unable to measure COMMENTS: Sinus bradycardia without intraventricular conduction disturbance. Technically challenging study, but diagnostically useful information was still obtained. M-mode and two-dimensional echocardiography was performed with pulse, continuous wave, color flow, and tissue Doppler studies. Normal left ventricular size and wall thickness with hyperkinetic wall motion. Mildly dilated left atrium with grade 2 LV diastolic dysfunction and elevated estimated mean left atrial pressure. Normal right heart chamber sizes and motion with estimated pulmonary arterial pressure upper limits of normal to mildly increased. IVC could not be visualized for technical reasons to further estimate central venous pressure. Normal aortic diameters. Slight aortic valvular sclerosis without functional abnormality. Subtle degenerative changes of the mitral valve apparatus with adequate leaflet excursion and no posterior systolic buckling and no more than trace-very mild mitral insufficiency (physiologic). Normal appearing tricuspid valve with very mild insufficiency (physiologic). No apparent intracardiac mass. Miniscule circumferential pericardial effusion measuring 3 mm without evidence of cardiac chamber compression. No respiratory variation of Doppler flow signals to suggest cardiac tamponade. MTDD
== END ==
LOC: M CARPUL 08:33
PROVIDERS: ATTEND Physician Assistant Medical
DX: I50.32 Chronic diastolic (congestive) heart failure (principal); Z12.31 Encounter for screening mammogram for malignant neoplasm of breast; N63.11 Unspecified lump in the right breast, upper outer quadrant

== ENCOUNTER → 2020-10-24 | Outpatient (CLI) | payer MEDICARE, MEDICAID ==
--- NOTE | 2020-10-24 15:52 | REP ---
INDICATION: CARMITA SCR MAMMO/Z12.39. COMPARISON: 11/25/2018. TECHNIQUE: MLO and CC views bilateral breasts performed with tomosynthesis. FINDINGS: Mild scattered fibroglandular tissue is present. There is a new 5 mm smoothly marginated nodule in the anterior upper outer quadrant of the right breast. No other mass or clustered microcalcifications are seen. The Volpara volumetric breast density pattern is A. IMPRESSION: BIRADS/ACR category 0, incomplete. New smoothly marginated 5 mm nodule anterior right upper outer quadrant. Recommend spot compression views and ultrasound to further evaluate. This patient's Tyrer-Cuzick lifetime breast cancer risk assessment score is 5.5%. This mammogram was interpreted with the aid of an FDA-approved computer-aided detection system. The patient states she had a clinical breast exam in over 1 year ago. The patient letter being requested is M0. RECOMMENDATION: Recommend spot compression views and ultrasound right breast as discussed above. <Electronically signed by Elias Urbina > 10/24/20 [id number]
== END ==
LOC: M WHC 14:19
PROVIDERS: ATTEND Physician Assistant Medical
DX: Z12.31 Encounter for screening mammogram for malignant neoplasm of breast (principal); N63.11 Unspecified lump in the right breast, upper outer quadrant

== ENCOUNTER → 2020-11-01 | Outpatient (CLI) | payer MEDICARE ==
--- NOTE | 2020-11-01 14:57 | REP ---
INDICATION: R92.8 ABN RIGHT MAMMO/R BREAST NODULE; RIGHT BREAST NODULE. Screening mammography from October 24, 2020 showed a new well-circumscribed 5 mm nodule for which diagnostic imaging was recommended. COMPARISON: Comparison is made with screening mammography October 24, 2020, prior mammography November 25, 2018 and November 11, 2017. Old right-sided mammographic images from August 23, 2008 are also reviewed. TECHNIQUE: Magnified focal spot-compression CC MLO and mL views of the right breast are obtained along with non magnified true mL right breast view with 3D tomography. Targeted right breast sonography is performed. This mammogram was interpreted with the aid of an FDA-approved computer-aided detection system. FINDINGS: Diagnostic mammography images today confirm the presence of a low-density 5 mm well-circumscribed fairly superficial nodular noah density in the right breast upper outer quadrant. An old 6 mm somewhat higher attenuation nodule is also noted more posterior in the upper outer quadrant unchanged from multiple prior studies including 2008. Scattered fibroglandular tissue elements are seen as before. No other significant mammographic finding. . Targeted ultrasound: Targeted right breast upper outer quadrant sonography is performed. At the 11 o'clock position in the right breast, 3 cm from the nipple, there is a 0.3 x 0.2 x 0.2 cm cyst which is felt to account for the mammographic noah density. There is also at 12 o'clock by ultrasound a 4 mm anechoic structure with some acoustic shadowing. This is felt to correspond with the mammographically stable nodule. This is compatible with a stable benign fibroadenoma. IMPRESSION: BIRADS/ACR category 2 benign right breast mammographic and sonographic findings. Noah density due to a small cyst seen sonographically. Stable nodule more posteriorly in the right breast. This patient's Tyrer-Cuzick lifetime breast cancer risk assessment score is 5.5%. RECOMMENDATION: Repeat screening mammography recommended 1 year (for women over 40). The patient letter being requested is M1. <Electronically signed by Raheem Oneill > 11/01/20 [id number]
== END ==
LOC: M WHC 12:49
PROVIDERS: ATTEND Physician Assistant Medical
DX: R92.8 Other abnormal and inconclusive findings on diagnostic imaging of breast (principal); N60.01 Solitary cyst of right breast
CPT/HCPCS: 76642; 77065; G0279

== ENCOUNTER → 2021-01-23 | Outpatient (CLI) | payer MEDICARE ==
[~2021-01-23] MED LIST changes: +AMLO25TA PO; +DOXA1TAB85 PO; +GABA-282 PO
[2021-01-23 15:08] VITALS: BP 126/84
--- NOTE | 2021-01-23 23:31 | ROOPDOC ---
[facility] Report Of Operation Report of Operation Date of the procedure:01/23/21 Diagnosis:Right breast cyst with mammographic target Procedure:Ultrasound guided aspiration of Right breast cyst with mammographic target Proceduralist: Unruly Valdez D.O. EBL: minimal Lidocaine 1% LOT [id number] Expiration: 02/2024 Sodium Bicarbonate 8.4% LOT [id number] Expiration: 09/2021 Procedure details: Procedure is indicated due to patients anxiety about the breast cyst with sonographic and mammographic target. Per patients request, aspiration was pursued. On original US of the right breast there was small cyst at 11:00 3 CFN on todays repeat sonographic exam, this cyst could not be found. The cyst at 12:00 was visible and persistent. Informed consent was obtained. The most common risk and possible complications including bleeding, hematoma, bruising, infection, injury to surrounding structures were explained to the patient and she expressed understanding. Patient was taken to the procedure room and placed on the bed in the supine position with the right upper extremity placed above the head. Appropriate time out was done stating patients name, date of , and the procedure to be performed. The right breast was prepped and draped in the usual fashion. The ultrasound was used to confirm the location of the cyst in the right breast at 12:00 3 centimeters from the nipple. Plain Lidocaine 1% and 8.4% sodium bicarbonate 10:1 mix was used to anesthetize the skin, and tissues along the anticipated aspiration tract. 18 G needle was used to aspirate cyst under direct ultrasound guidance. Aspirated fluid was serosanguinous and somewhat more viscous than expected. 0.5 cc of fluid was removed. The fluid was sent for cytology. The cyst completely collapsed and images were captured. Manual pressure over the cyst aspiration site and tract was held. No bleeding was noted upon removal of the pressure. Post procedure right breast mammogram was done. On my review of imaging, the mammographic target resolved post aspiration. Patient tolerated procedure well. Discharge instructions were discussed with the patient and she expressed understanding. UNRULY VALDEZ DO Jan 23, 2021 23:31
== END ==
LOC: M WHCPRO 07:00
PROVIDERS: ATTEND Surgery
DX: N60.01 Solitary cyst of right breast (principal)
CPT/HCPCS: 10005; 77065; 88173; G0279

== ENCOUNTER 2021-09-30 13:06 | Emergency (ER) | payer OTHER, MEDICARE, MEDICAID ==
[~2021-09-30] VITALS: Ht 157.5 cm; Wt 71.4 kg
[~2021-09-30 13:06] MED LIST changes: -ALEN35TA54; +ALEN35TA56; -OLOP0.2S; +OLOP2.5D7
[2021-09-30] MEDS ORDERED: BUSP5TA (14:23)
[2021-09-30] MEDS ORDERED: KETOROLAC TROMETHAMINE 10 MG TAB PO ONE (14:45)
[2021-09-30 16:58] VITALS: BP 159/72
== END 2021-09-30 16:59 | disposition home or self-care (01) ==
LOC: M ED 13:06
DX: M54.50 Low back pain, unspecified (principal); M54.2 Cervicalgia; M25.512 Pain in left shoulder; M25.562 Pain in left knee; Z88.0 Allergy status to penicillin; Z88.6 Allergy status to analgesic agent; V49.40XA Driver injured in collision with unspecified motor vehicles in traffic accident, initial encounter; Y92.9 Unspecified place or not applicable; Y93.9 Activity, unspecified; Y99.9 Unspecified external cause status

== ENCOUNTER → 2021-12-31 | Outpatient (REF) | payer MEDICARE, MEDICAID ==
[~2021-12-31] MED LIST changes: +BUSP5TA
[2021-12-31 16:16] LABS: BASO % 0.4 % (0.0-1.0); EOS # 0.1 10^3/uL (0.0-0.5); EOS % 1.3 % (0.0-3.0); HEMATOCRIT 41.6 % (36.0-47.0); HEMOGLOBIN 13.8 g/dl (12.0-15.5); LYMPH # 1.5 10^3/uL (1.5-5.0); LYMPH % 22.4 % (24.0-44.0); MEAN CORPUSCULAR HEMOGLOBIN 30.7 pg (27.0-33.0); MEAN CORPUSCULAR HGB CONC 33.2 g/dl (32.0-36.5); MEAN CORPUSCULAR VOLUME 92.4 fl (80.0-96.0); MONO # 0.6 10^3/uL (0.0-0.8); MONO % 8.2 % (2.0-8.0); NEUTROPHILS # 4.6 10^3/uL (1.5-8.5); NEUTROPHILS % 67.4 % (36.0-66.0); PLATELET COUNT, AUTOMATED 224 10^3/uL (150-450); WHITE BLOOD COUNT 6.8 10^3/uL (4.0-10.0)
[2021-12-31 16:27] LABS: ALBUMIN 3.8 GM/DL (3.2-5.2); BILIRUBIN,TOTAL 0.3 MG/DL (0.2-1.0); CALCIUM LEVEL 9.6 MG/DL (8.8-10.2); CHOLESTEROL RISK RATIO 3.372 (<5); CREATININE FOR GFR 1.02 MG/DL (0.55-1.30); GLOMERULAR FILTRATION RATE 56.1 (>39); POTASSIUM SERUM 3.7 MEQ/L (3.5-5.1); THYROID STIMULATING HORMONE 2.07 uIU/ML (0.358-3.740); TOTAL PROTEIN 7.5 GM/DL (6.4-8.2)
[2021-12-31 16:46] LABS: TOTAL 25(OH) VITAMIN D 39.2 NG/ML (30.0-100.0)
== END ==
LOC: M SFHCADAM 14:26
PROVIDERS: ATTEND Physician Assistant Medical
DX: I50.32 Chronic diastolic (congestive) heart failure (principal); I11.0 Hypertensive heart disease with heart failure; J44.9 Chronic obstructive pulmonary disease, unspecified; E55.9 Vitamin D deficiency, unspecified; G47.33 Obstructive sleep apnea (adult) (pediatric)

== ENCOUNTER → 2022-04-07 | Outpatient (CLI) | payer MEDICARE, MEDICAID ==
[~2022-04-07] MED LIST changes: -BUSP5TA; +BUSP5TA PO; +OMEG10002 PO; +VITA100093 PO; +VITMTA PO
== END ==
LOC: M LABSMTC 09:29
PROVIDERS: ATTEND Anesthesiology
DX: Z01.812 Encounter for preprocedural laboratory examination (principal)

== ENCOUNTER 2022-04-09 08:24 | Day surgery (SDC) | payer MEDICARE, MEDICAID ==
[~2022-04-09] VITALS: Ht 158.8 cm; Wt 71.0 kg
[~2022-04-09 08:24] MED LIST changes: +BSS IRRIG/VANCO(10MG)/TOBRA(5MG)/EPINEPH(1:1000-0.5CC)500ML BAG-ORONLY IR ONE; +LIDOCAINE 1% SDV 5ML VIAL As Ordered ONE; +LIDOCAINE 3.5 % 1ML OPHTH TOPICAL GEL OU ONE; +OFLOXACIN 0.3 % (OCUFLOX) OPTH SOL 5ML OS ONE; +PHENYLEPHRINE HCL 10 % OPHTH. SOL 5ML OS PRN
[2022-04-09] MEDS ORDERED: MIDAZOLAM INJ 2MG/2ML VIAL (J2250 PER 1MG) As Ordered ONE (09:18)
[2022-04-09] MEDS ORDERED: fentaNYL 100 MCG/2 ML INJECTION As Ordered ONE (09:19)
[2022-04-09] MEDS: TROPICAMIDE 1% OPHTH SOLN 2ML OS SCH ×2 (09:31→09:39)
[2022-04-09] MEDS: CYCLOPENTOLATE 1% OPHTH SOLN 2 ML BTL OS SCH ×2 (09:31→09:39)
[2022-04-09] MEDS: PHENYLEPHRINE 2.5% OPHTH SOL 2ML OS SCH ×2 (09:31→09:39)
[2022-04-09] MEDS ORDERED: acetaZOLAMIDE 500MG ER CAP PO STA (10:49)
[2022-04-09 11:18] VITALS: BP 143/79
== END 2022-04-09 14:23 | disposition home or self-care (01) ==
LOC: M SDC 08:24
PROVIDERS: ATTEND Ophthalmology
DX: H25.12 Age-related nuclear cataract, left eye (principal); H16.223 Keratoconjunctivitis sicca, not specified as Sjogren's, bilateral; M54.2 Cervicalgia; M79.661 Pain in right lower leg; M79.662 Pain in left lower leg; G89.29 Other chronic pain; I10 Essential (primary) hypertension; F41.9 Anxiety disorder, unspecified; J44.9 Chronic obstructive pulmonary disease, unspecified; M81.0 Age-related osteoporosis without current pathological fracture; G47.33 Obstructive sleep apnea (adult) (pediatric); G47.00 Insomnia, unspecified; Z79.899 Other long term (current) drug therapy; Z88.0 Allergy status to penicillin; Z88.5 Allergy status to narcotic agent; Z88.1 Allergy status to other antibiotic agents; Z88.7 Allergy status to serum and vaccine
CPT/HCPCS: 66984; J2250; J3010; V2632

== ENCOUNTER → 2022-07-30 | Outpatient (REF) | payer MEDICARE, MEDICAID ==
[~2022-07-30] MED LIST changes: -BSS IRRIG/VANCO(10MG)/TOBRA(5MG)/EPINEPH(1:1000-0.5CC)500ML BAG-ORONLY IR ONE; -LIDOCAINE 1% SDV 5ML VIAL As Ordered ONE; -LIDOCAINE 3.5 % 1ML OPHTH TOPICAL GEL OU ONE; -OFLOXACIN 0.3 % (OCUFLOX) OPTH SOL 5ML OS ONE; -PHENYLEPHRINE HCL 10 % OPHTH. SOL 5ML OS PRN
[2022-07-30 14:23] LABS: BASO # 0.1 10^3/uL (0.0-0.2); BASO % 0.5 % (0.0-1.0); EOS # 0.1 10^3/uL (0.0-0.5); EOS % 1.3 % (0.0-3.0); HEMATOCRIT 42.8 % (36.0-47.0); HEMOGLOBIN 13.5 g/dl (12.0-15.5); LYMPH # 1.9 10^3/uL (1.5-5.0); LYMPH % 21.1 % (24.0-44.0); MEAN CORPUSCULAR HGB CONC 31.5 g/dl (32.0-36.5); MONO # 0.8 10^3/uL (0.0-0.8); MONO % 8.4 % (2.0-8.0); NEUTROPHILS # 6.3 10^3/uL (1.5-8.5); NEUTROPHILS % 68.3 % (36.0-66.0); PLATELET COUNT, AUTOMATED 246 10^3/uL (150-450); RED BLOOD COUNT 4.65 10^6/uL (4.00-5.40); WHITE BLOOD COUNT 9.2 10^3/uL (4.0-10.0)
[2022-07-30 14:33] LABS: ALBUMIN 3.7 G/DL (3.2-5.2); ALKALINE PHOSPHATASE 77 U/L (46-116); ALT/SGPT 19 U/L (7.0-40); AST/SGOT 22 U/L (<34); BILIRUBIN,TOTAL 0.5 MG/DL (0.3-1.2); BLOOD UREA NITROGEN 18 MG/DL (9-23); CARBON DIOXIDE LEVEL 35 MMOL/L (20-31); CHLORIDE LEVEL 99 MMOL/L (98-107); CHOLESTEROL LEVEL 154 MG/DL (<200); CHOLESTEROL RISK RATIO 2.99 (<5); GLOMERULAR FILTRATION RATE > 60.0 (>39); GLUCOSE, FASTING 134 MG/DL (74-106); HDL CHOLESTEROL 51.5 MG/DL (>40); LDL CHOLESTEROL 81.3 MG/DL (<100); NON-HDL-C 103 MG/DL; POTASSIUM SERUM 3.9 MMOL/L (3.5-5.1); SODIUM LEVEL 140 MMOL/L (136-145); TOTAL PROTEIN 7.4 G/DL (5.7-8.2); TRIGLYCERIDES LEVEL 106 MG/DL (<150)
[2022-07-30 14:35] LABS: TOTAL 25(OH) VITAMIN D 59.9 NG/ML (20.0-100.0)
[2022-07-30 14:36] LABS: THYROID STIMULATING HORMONE 2.214 uIU/ML (0.55-4.78)
[2022-07-30 15:24] LABS: CREATININE, URINE 92.7 MG/DL; MALB URINE SIEMENS < 3.0 MG/DL; MAU/CREAT RATIO 3.2 MCG/MG (0.0-30.0)
== END ==
LOC: M SFHCADAM 10:46
PROVIDERS: ATTEND Physician Assistant Medical
DX: I11.0 Hypertensive heart disease with heart failure (principal); I50.32 Chronic diastolic (congestive) heart failure; E55.9 Vitamin D deficiency, unspecified

== ENCOUNTER → 2022-08-22 | Outpatient (CLI) | payer OTHER, MEDICAID | LOC: M WHC 13:46 | PROVIDERS: ATTEND Physician Assistant Medical | DX: Z12.31 Encounter for screening mammogram for malignant neoplasm of breast (principal) ==

== ENCOUNTER → 2022-09-16 | Outpatient (RCR) | payer OTHER, MEDICAID | LOC: M PT 08-19 12:12 | PROVIDERS: ATTEND Orthopaedic Surgery Orthopaedic Surgery of the Spine | DX: M54.50 Low back pain, unspecified (principal); M43.10 Spondylolisthesis, site unspecified ==

== ENCOUNTER → 2022-10-14 | Outpatient (RCR) | payer OTHER, MEDICAID | LOC: M PT 09-18 12:24 | PROVIDERS: ATTEND Orthopaedic Surgery Orthopaedic Surgery of the Spine | DX: M43.10 Spondylolisthesis, site unspecified (principal); M54.50 Low back pain, unspecified ==

== ENCOUNTER 2022-10-16 12:58 | Outpatient (RCR) | payer OTHER, MEDICAID | END 2022-11-14 | LOC: M PT 12:58 | PROVIDERS: ATTEND Orthopaedic Surgery Orthopaedic Surgery of the Spine | DX: M43.10 Spondylolisthesis, site unspecified (principal); M54.50 Low back pain, unspecified ==

== ENCOUNTER → 2023-01-14 | Outpatient (REF) | payer MEDICARE, MEDICAID ==
[~2023-01-14] MED LIST changes: +POTA-298 PO; -POTA1TAB14 PO
[2023-01-14 17:05] LABS: BASO % 0.4 % (0.0-1.0); EOS # 0.1 10^3/uL (0.0-0.5); EOS % 1.4 % (0.0-3.0); HEMATOCRIT 39.6 % (36.0-47.0); LYMPH # 2.1 10^3/uL (1.5-5.0); MEAN CORPUSCULAR HEMOGLOBIN 29.4 pg (27.0-33.0); MEAN CORPUSCULAR HGB CONC 32.8 g/dl (32.0-36.5); MEAN CORPUSCULAR VOLUME 89.6 fl (80.0-96.0); MONO # 0.5 10^3/uL (0.0-0.8); MONO % 7.5 % (2.0-8.0); NEUTROPHILS # 4.3 10^3/uL (1.5-8.5); NEUTROPHILS % 61.3 % (36.0-66.0); PLATELET COUNT, AUTOMATED 228 10^3/uL (150-450); RED BLOOD COUNT 4.42 10^6/uL (4.00-5.40); WHITE BLOOD COUNT 7.1 10^3/uL (4.0-10.0)
[2023-01-14 17:25] LABS: ALBUMIN 3.8 G/DL (3.2-5.2); ALKALINE PHOSPHATASE 74 U/L (46-116); ALT/SGPT 16 U/L (7.0-40); AST/SGOT 22 U/L (<34); BILIRUBIN,TOTAL 0.3 MG/DL (0.3-1.2); BLOOD UREA NITROGEN 20 MG/DL (9-23); CALCIUM LEVEL 8.7 MG/DL (8.3-10.6); CARBON DIOXIDE LEVEL 34 MMOL/L (20-31); CHLORIDE LEVEL 102 MMOL/L (98-107); CHOLESTEROL LEVEL 145 MG/DL (<200); CHOLESTEROL RISK RATIO 3.37 (<5); GLOMERULAR FILTRATION RATE > 60.0 (>39); GLUCOSE, FASTING 148 MG/DL (74-106); HDL CHOLESTEROL 42.9 MG/DL (>40); LDL CHOLESTEROL 68.3 MG/DL (<100); NON-HDL-C 102.1 MG/DL; POTASSIUM SERUM 3.7 MMOL/L (3.5-5.1); SODIUM LEVEL 142 MMOL/L (136-145); TOTAL PROTEIN 6.8 G/DL (5.7-8.2); TRIGLYCERIDES LEVEL 169 MG/DL (<150)
[2023-01-14 17:29] LABS: THYROID STIMULATING HORMONE 1.518 uIU/ML (0.55-4.78); TOTAL 25(OH) VITAMIN D 47.3 NG/ML (20.0-100.0)
[2023-01-14 18:12] LABS: HEMOGLOBIN A1c 7.2 % (4.0-6.0)
== END ==
LOC: M SFHCADAM 13:49
PROVIDERS: ATTEND Physician Assistant Medical
DX: I11.0 Hypertensive heart disease with heart failure (principal); E55.9 Vitamin D deficiency, unspecified; I50.32 Chronic diastolic (congestive) heart failure

== ENCOUNTER 2023-02-10 21:13 | Emergency (ER) | payer OTHER, MEDICAID ==
[~2023-02-10] VITALS: Ht 160 cm; Wt 69.1 kg
[2023-02-10 21:13] VITALS: TEMP 98.6; O2SAT 96
[2023-02-10] MEDS ORDERED: DOXYCYCLINE HYCLATE 100MG TABLET PO ONE (22:55)
[2023-02-10] MEDS ORDERED: DOXY-443 PO (22:59)
[2023-02-10 23:06] VITALS: BP 146/78
[2023-02-11] MEDS ORDERED: DOXYCYCLINE HYCLATE 100MG TABLET PO ONE
== END 2023-02-10 23:09 | disposition home or self-care (01) ==
LOC: M ED 21:13
DX: S80.862A Insect bite (nonvenomous), left lower leg, initial encounter (principal); W57.XXXA Bitten or stung by nonvenomous insect and other nonvenomous arthropods, initial encounter; Y92.89 Other specified places as the place of occurrence of the external cause; Y93.89 Activity, other specified; Y99.8 Other external cause status; I10 Essential (primary) hypertension; J45.909 Unspecified asthma, uncomplicated; F32.A Depression, unspecified; G62.9 Polyneuropathy, unspecified; M81.0 Age-related osteoporosis without current pathological fracture; Z88.0 Allergy status to penicillin; Z88.5 Allergy status to narcotic agent; Z88.8 Allergy status to other drugs, medicaments and biological substances; Z91.010 Allergy to peanuts; Z79.899 Other long term (current) drug therapy; Z79.51 Long term (current) use of inhaled steroids

== ENCOUNTER → 2023-03-13 | Outpatient (CLI) | payer OTHER, MEDICAID ==
[~2023-03-13] MED LIST changes: +DOXY-443 PO
== END ==
LOC: M ADAMS 15:02
PROVIDERS: ATTEND Physician Assistant
DX: M79.601 Pain in right arm (principal)

== ENCOUNTER → 2023-03-13 | Outpatient (REF) | payer OTHER, MEDICAID | LOC: M SFHCADAM 14:43 | PROVIDERS: ATTEND Physician Assistant | DX: S40.861D Insect bite (nonvenomous) of right upper arm, subsequent encounter (principal) ==

== ENCOUNTER → 2023-03-13 | Outpatient (CLI) | payer OTHER, MEDICAID | LOC: M CARPUL 09:27 | PROVIDERS: ATTEND Physician Assistant Medical | DX: I35.8 Other nonrheumatic aortic valve disorders (principal) ==

== ENCOUNTER → 2023-07-22 | Outpatient (REF) | payer MEDICARE, MEDICAID ==
[2023-07-22 16:15] LABS: HEMOGLOBIN A1c 6.8 % (4.0-6.0)
[2023-07-22 16:38] LABS: ALBUMIN 3.9 G/DL (3.2-5.2); ALKALINE PHOSPHATASE 91 U/L (46-116); ALT/SGPT 23 U/L (7.0-40); AST/SGOT 17 U/L (<34); BILIRUBIN,TOTAL 0.4 MG/DL (0.3-1.2); BLOOD UREA NITROGEN 23 MG/DL (9-23); CALCIUM LEVEL 8.9 MG/DL (8.3-10.6); CARBON DIOXIDE LEVEL 36 MMOL/L (20-31); CHLORIDE LEVEL 101 MMOL/L (98-107); CHOLESTEROL LEVEL 163 MG/DL (<200); CHOLESTEROL RISK RATIO 2.69 (<5); CREATININE FOR GFR 0.76 MG/DL (0.55-1.30); GLOMERULAR FILTRATION RATE > 60.0 (>39); GLUCOSE, FASTING 138 MG/DL (74-106); HDL CHOLESTEROL 60.5 MG/DL (>40); LDL CHOLESTEROL 78.9 MG/DL (<100); NON-HDL-C 102.5 MG/DL; POTASSIUM SERUM 3.3 MMOL/L (3.5-5.1); SODIUM LEVEL 142 MMOL/L (136-145); THYROID STIMULATING HORMONE 1.337 uIU/ML (0.55-4.78); TOTAL PROTEIN 7.4 G/DL (5.7-8.2); TRIGLYCERIDES LEVEL 118 MG/DL (<150)
== END ==
LOC: M SFHCADAM 13:47
PROVIDERS: ATTEND Physician Assistant Medical
DX: E11.9 Type 2 diabetes mellitus without complications (principal); I50.32 Chronic diastolic (congestive) heart failure; E55.9 Vitamin D deficiency, unspecified

== ENCOUNTER → 2023-08-24 | Outpatient (CLI) | payer OTHER, MEDICAID | LOC: M WHC 13:02 | PROVIDERS: ATTEND Physician Assistant Medical | DX: Z12.31 Encounter for screening mammogram for malignant neoplasm of breast (principal) ==

== ENCOUNTER 2023-10-18 19:15 | Emergency (ER) | payer OTHER, MEDICAID ==
[2023-10-19 04:45] VITALS: BP 141/81; TEMP 98.1; O2SAT 94
== END 2023-10-19 05:04 | disposition home or self-care (01) ==
LOC: M ED 19:15
DX: M19.021 Primary osteoarthritis, right elbow (principal); I10 Essential (primary) hypertension; J45.909 Unspecified asthma, uncomplicated; F32.A Depression, unspecified; Z88.8 Allergy status to other drugs, medicaments and biological substances; Z88.0 Allergy status to penicillin; Z91.010 Allergy to peanuts; Z79.51 Long term (current) use of inhaled steroids; Z79.899 Other long term (current) drug therapy; Z79.810 Long term (current) use of selective estrogen receptor modulators (SERMs)

== ENCOUNTER → 2024-01-21 | Outpatient (REF) | payer OTHER, MEDICAID ==
[~2024-01-21] MED LIST changes: +DOXY-323 PO; -DOXY-443 PO
[2024-01-21 18:19] LABS: BASO % 0.6 % (0.0-1.0); EOS # 0.2 10^3/uL (0.0-0.5); EOS % 2.7 % (0.0-3.0); HEMATOCRIT 43.3 % (36.0-47.0); HEMOGLOBIN 13.9 g/dl (12.0-15.5); LYMPH # 1.9 10^3/uL (1.5-5.0); LYMPH % 28.4 % (24.0-44.0); MEAN CORPUSCULAR HEMOGLOBIN 29.3 pg (27.0-33.0); MEAN CORPUSCULAR HGB CONC 32.1 g/dl (32.0-36.5); MEAN CORPUSCULAR VOLUME 91.2 fl (80.0-96.0); MONO # 0.6 10^3/uL (0.0-0.8); MONO % 8.4 % (2.0-8.0); NEUTROPHILS # 3.9 10^3/uL (1.5-8.5); NEUTROPHILS % 59.7 % (36.0-66.0); PLATELET COUNT, AUTOMATED 242 10^3/uL (150-450); RED BLOOD COUNT 4.75 10^6/uL (4.00-5.40); WHITE BLOOD COUNT 6.6 10^3/uL (4.0-10.0)
[2024-01-21 18:36] LABS: HEMOGLOBIN A1c 6.9 % (4.0-6.0)
[2024-01-21 18:49] LABS: ALBUMIN 3.7 G/DL (3.2-5.2); ALKALINE PHOSPHATASE 78 U/L (46-116); ALT/SGPT 19 U/L (7.0-40); AST/SGOT 14 U/L (<34); BILIRUBIN,TOTAL 0.4 MG/DL (0.3-1.2); BLOOD UREA NITROGEN 17 MG/DL (9-23); CARBON DIOXIDE LEVEL 37 MMOL/L (20-31); CHLORIDE LEVEL 100 MMOL/L (98-107); CHOLESTEROL LEVEL 149 MG/DL (<200); CHOLESTEROL RISK RATIO 3.04 (<5); CREATININE FOR GFR 0.85 MG/DL (0.55-1.30); GLOMERULAR FILTRATION RATE > 60.0 (>39); GLUCOSE, FASTING 169 MG/DL (74-106); HDL CHOLESTEROL 48.9 MG/DL (>40); LDL CHOLESTEROL 61.7 MG/DL (<100); NON-HDL-C 100.1 MG/DL; POTASSIUM SERUM 3.6 MMOL/L (3.5-5.1); SODIUM LEVEL 141 MMOL/L (136-145); TOTAL 25(OH) VITAMIN D 52.2 NG/ML (20.0-100.0); TOTAL PROTEIN 7.1 G/DL (5.7-8.2); TRIGLYCERIDES LEVEL 192 MG/DL (<150)
== END ==
LOC: M SFHCADAM 13:52
PROVIDERS: ATTEND Physician Assistant Medical
DX: I50.32 Chronic diastolic (congestive) heart failure (principal); E11.9 Type 2 diabetes mellitus without complications; E55.9 Vitamin D deficiency, unspecified

== ENCOUNTER → 2024-06-03 | Outpatient (CLI) | payer OTHER, MEDICAID ==
[~2024-06-03] MED LIST changes: -DOXY-323 PO; +DOXY-441 PO; +GABA-1172 PO; -GABA-282 PO
== END ==
LOC: M SOG 07:20
PROVIDERS: ATTEND Orthopaedic Surgery
DX: M54.50 Low back pain, unspecified (principal)

== ENCOUNTER → 2024-07-25 | Outpatient (REF) | payer OTHER, MEDICAID ==
[2024-07-25 18:58] LABS: BASO # 0.1 10^3/uL (0.0-0.2); BASO % 0.7 % (0.0-1.0); EOS # 0.2 10^3/uL (0.0-0.5); EOS % 2.4 % (0.0-3.0); HEMATOCRIT 43.4 % (36.0-47.0); HEMOGLOBIN 13.9 g/dl (12.0-15.5); LYMPH # 1.8 10^3/uL (1.5-5.0); LYMPH % 25.9 % (24.0-44.0); MEAN CORPUSCULAR HEMOGLOBIN 29.5 pg (27.0-33.0); MEAN CORPUSCULAR VOLUME 92.1 fl (80.0-96.0); MONO # 0.6 10^3/uL (0.0-0.8); MONO % 8.3 % (2.0-8.0); NEUTROPHILS # 4.4 10^3/uL (1.5-8.5); NEUTROPHILS % 62.4 % (36.0-66.0); PLATELET COUNT, AUTOMATED 269 10^3/uL (150-450); RED BLOOD COUNT 4.71 10^6/uL (4.00-5.40); WHITE BLOOD COUNT 7.1 10^3/uL (4.0-10.0)
[2024-07-25 19:28] LABS: HEMOGLOBIN A1c 6.9 % (4.0-6.0)
[2024-07-25 19:29] LABS: ALBUMIN 3.9 G/DL (3.2-5.2); ALKALINE PHOSPHATASE 86 U/L (35-104); ALT/SGPT 22 U/L (7.0-40); AST/SGOT 22 U/L (<34); BILIRUBIN,TOTAL 0.4 MG/DL (0.3-1.2); BLOOD UREA NITROGEN 17 MG/DL (9-23); CALCIUM LEVEL 9.4 MG/DL (8.3-10.6); CARBON DIOXIDE LEVEL 36 MMOL/L (20-31); CHLORIDE LEVEL 97 MMOL/L (98-107); CHOLESTEROL LEVEL 171 MG/DL (<200); CHOLESTEROL RISK RATIO 3.01 (<5); CREATININE FOR GFR 0.82 MG/DL (0.55-1.30); GLOMERULAR FILTRATION RATE > 60.0 (>39); GLUCOSE, FASTING 139 MG/DL (74-106); HDL CHOLESTEROL 56.7 MG/DL (>40); LDL CHOLESTEROL 75.1 MG/DL (<100); NON-HDL-C 114.3 MG/DL; POTASSIUM SERUM 3.7 MMOL/L (3.5-5.1); SODIUM LEVEL 142 MMOL/L (136-145); TRIGLYCERIDES LEVEL 196 MG/DL (<150)
[2024-07-25 19:30] LABS: CREATININE, URINE 197.3 MG/DL
[2024-07-25 19:32] LABS: FREE T4 1.24 NG/DL (0.89-1.76); THYROID STIMULATING HORMONE 2.732 uIU/ML (0.55-4.78)
[2024-07-25 19:33] LABS: TOTAL 25(OH) VITAMIN D 69.2 NG/ML (20.0-100.0)
== END ==
LOC: M SFHCADAM 11:53
PROVIDERS: ATTEND Physician Assistant Medical
DX: I11.0 Hypertensive heart disease with heart failure (principal); E11.9 Type 2 diabetes mellitus without complications; J44.9 Chronic obstructive pulmonary disease, unspecified; E55.9 Vitamin D deficiency, unspecified

== ENCOUNTER → 2024-11-04 | Outpatient (CLI) | payer MEDICARE, MEDICAID | LOC: M WHC 11:36 | PROVIDERS: ATTEND Physician Assistant Medical | DX: Z12.31 Encounter for screening mammogram for malignant neoplasm of breast (principal); R92.313 Mammographic fatty tissue density, bilateral breasts ==

== ENCOUNTER → 2025-05-03 | Outpatient (REF) | payer MEDICARE ==
[~2025-05-03] MED LIST changes: -IBUP-1022 PO; +IBUP600T42 PO; +LISI40TA10 PO; -LISI40TA4 PO
[2025-05-03 18:30] LABS: BASO # 0.1 10^3/uL (0.0-0.2); BASO % 0.7 % (0.0-1.0); EOS # 0.1 10^3/uL (0.0-0.5); EOS % 1.9 % (0.0-3.0); LYMPH # 1.8 10^3/uL (1.5-5.0); LYMPH % 25.4 % (24.0-44.0); MONO # 0.6 10^3/uL (0.0-0.8); MONO % 8.0 % (2.0-8.0); NEUTROPHILS # 4.4 10^3/uL (1.5-8.5); NEUTROPHILS % 63.7 % (36.0-66.0); PLATELET COUNT, AUTOMATED 276 10^3/uL (150-450)
[2025-05-03 19:02] LABS: ALT/SGPT 18.0 U/L (7.0-40); AST/SGOT 23.0 U/L (<34); CALCIUM LEVEL 9.2 MG/DL (8.3-10.6); CARBON DIOXIDE LEVEL 36.0 MMOL/L (20-31); CHLORIDE LEVEL 97.0 MMOL/L (98-107); CHOLESTEROL LEVEL 184.0 MG/DL (<200); CHOLESTEROL RISK RATIO 3.16 (<5); CREATININE FOR GFR 0.82 MG/DL (0.55-1.30); GLOMERULAR FILTRATION RATE 72.7 (>39); LDL CHOLESTEROL 94.5 MG/DL (<100); NON-HDL-C 125.9 MG/DL; POTASSIUM SERUM 3.6 MMOL/L (3.5-5.1); SODIUM LEVEL 140.0 MMOL/L (136-145); TRIGLYCERIDES LEVEL 157.0 MG/DL (<150)
[2025-05-03 19:04] LABS: FREE T4 1.19 NG/DL (0.89-1.76); TOTAL 25(OH) VITAMIN D 66.4 NG/ML (20.0-100.0)
[2025-05-03 19:17] LABS: ESTIMATED AVERAGE GLUCOSE 151.0 MG/DL (60-110)
== END ==
LOC: M SFHCADAM 15:00
PROVIDERS: ATTEND Physician Assistant Medical
DX: I11.0 Hypertensive heart disease with heart failure (principal); E11.9 Type 2 diabetes mellitus without complications; M81.0 Age-related osteoporosis without current pathological fracture; J44.9 Chronic obstructive pulmonary disease, unspecified